=== PATIENT | male | born 1935 | race Caucasian/White ===

== ENCOUNTER 2017-07-08 01:50 | Emergency (ER) | payer MEDICARE, OTHER, MEDICAID ==
[2017-07-08 02:24] LABS: URINE PH (Dip) POC 5.5 (5.0-8.5)
[2017-07-08 02:24] LABS: URINE BLOOD (Dip) POC 1+ (NEGATIVE); URINE GLUCOSE (Dip) POC Negative (NEGATIVE); URINE KETONES (Dip) POC Negative (NEGATIVE); URINE LEUKOCYTE EST (Dip) POC 1+ (NEGATIVE); URINE NITRITE (Dip) POC Negative (NEGATIVE); URINE TOTAL PROTEIN POC 2+ (NEGATIVE)
== END 2017-07-08 02:53 | disposition home or self-care (01) ==
LOC: E/R 01:50
DX: T83.098A Other mechanical complication of other urinary catheter, initial encounter (principal); I10 Essential (primary) hypertension; E11.9 Type 2 diabetes mellitus without complications; Y73.2 Prosthetic and other implants, materials and accessory gastroenterology and urology devices associated with adverse incidents; Z79.84 Long term (current) use of oral hypoglycemic drugs
CPT/HCPCS: 81003; 99282

== ENCOUNTER 2017-07-09 16:49 | Inpatient (IN) | payer MEDICARE, OTHER ==
[2017-07-09] MEDS: SOD CHLORIDE 0.9% 1,000 ML IV (17:50)
[2017-07-09 18:10] LABS: ADD MAN DIFF? NO
[2017-07-09 18:11] LABS: WHITE BLOOD COUNT 10.2 10^3/ul (4.8-10.8)
[2017-07-09 18:11] LABS: BASOPHILS % 0.4 % (0.0-2.0); EOSINOPHILS % 0.3 % (0.0-7.0); HEMOGLOBIN 12.1 g/dl (14.0-18.0); LYMPHOCYTES # 1.8 10^3/ul (0.8-2.9); LYMPHOCYTES % 17.8 % (15.0-51.0); MEAN CORPUSCULAR HEMOGLOBIN 28.5 pg (29.0-33.0); MEAN CORPUSCULAR HGB CONC 31.8 g/dl (32.0-37.0); MEAN CORPUSCULAR VOLUME 89.4 fl (82.0-101.0); MEAN PLATELET VOLUME 9.6 fl (7.4-10.4); MONOCYTE # 0.5 10^3/ul (0.3-0.9); MONOCYTES % 5.2 % (0.0-11.0); NEUTROPHIL # 7.8 10^3/ul (1.6-7.5); NEUTROPHILS % 75.9 % (39.0-77.0); PLATELET COUNT 277 10^3/UL (140-415); RED BLOOD COUNT 4.25 10^6/ul (4.70-6.10); RED CELL DISTRIBUTION WIDTH 13.7 % (11.5-14.5)
[2017-07-09 18:22] LABS: ADD UMIC YES; UR ASCORBIC ACID NEGATIVE (NEGATIVE); UR BACTERIA FEW /HPF (NONE SEEN); UR BILIRUBIN (Dip) NEGATIVE (NEGATIVE); UR BLOOD (Dip) 3+ mg/dL (NEGATIVE); UR CLARITY CLOUDY (CLEAR); UR COLOR YELLOW (YELLOW); UR GLUCOSE (Dip) NEGATIVE (NEGATIVE); UR KETONES (Dip) NEGATIVE (NEGATIVE); UR LEUKOCYTE ESTERASE (Dip) 3+ Leu/ul (NEGATIVE); UR NITRITE (Dip) NEGATIVE (NEGATIVE); UR RBC 154 /HPF (0-5); UR SPECIFIC GRAVITY (Dip) 1.017 (1.003-1.030); UR TOTAL PROTEIN (Dip) 2+ mg/dl (NEGATIVE); UR UROBILINOGEN (Dip) NEGATIVE (NEGATIVE); UR WBC 96 /HPF (0-5)
[2017-07-09 18:28] LABS: ANION GAP 18 (8-16); BLOOD UREA NITROGEN 43 mg/dl (7-20); CALCIUM 9.1 mg/dl (8.4-10.2); CARBON DIOXIDE 24 mmol/L (21-31); CHLORIDE 98 mmol/L (97-110); CREATININE 1.88 mg/dl (0.61-1.24); GLUCOSE 222 mg/dl (70-220); POTASSIUM 5.1 mmol/L (3.5-5.1); SODIUM 135 mmol/L (135-144)
[2017-07-09 18:40] LABS: TROPONIN-I < 0.012 ng/ml (0.00-0.12)
[2017-07-09 21:15] LABS: HEMATOCRIT 35.4 % (42.0-52.0); HEMOGLOBIN 11.3 g/dl (14.0-18.0)
[2017-07-09] MEDS: CEFEPIME 1GM/50 ML (PMX) 50 ML IVPB (21:26)
[2017-07-10] MEDS ORDERED: GLUCOSE GEL 15 GRAM TUBE BUCCAL (00:30)
[2017-07-10] MEDS ORDERED: GLUCOSE GEL 15 GRAM TUBE PO ×2 (00:30)
[2017-07-10] MEDS ORDERED: DEXTROSE 50% 50 ML SYRINGE IV ×2 (00:30)
[2017-07-10] MEDS ORDERED: GLUCAGON 1 MG INJ IM (00:30)
[2017-07-10 01:15] LABS: TROPONIN-I < 0.012 ng/ml (0.00-0.12)
[2017-07-10] MEDS: ACCU-CHEK XX (02:00)
[2017-07-10] MEDS: LEVOTHYROXINE 50 MCG TAB PO (06:19)
[2017-07-10 07:21] LABS: ADD MAN DIFF? NO
[2017-07-10 07:27] LABS: BASOPHIL # 0.1 10^3/ul (0.0-0.1); BASOPHILS % 0.7 % (0.0-2.0); EOSINOPHILS # 0.3 10^3/ul (0.0-0.5); EOSINOPHILS % 3.8 % (0.0-7.0); HEMATOCRIT 35.6 % (42.0-52.0); HEMOGLOBIN 11.4 g/dl (14.0-18.0); LYMPHOCYTES # 2.1 10^3/ul (0.8-2.9); LYMPHOCYTES % 27.8 % (15.0-51.0); MEAN CORPUSCULAR HEMOGLOBIN 28.3 pg (29.0-33.0); MEAN CORPUSCULAR VOLUME 88.3 fl (82.0-101.0); MEAN PLATELET VOLUME 9.9 fl (7.4-10.4); MONOCYTE # 0.7 10^3/ul (0.3-0.9); MONOCYTES % 9.8 % (0.0-11.0); NEUTROPHIL # 4.3 10^3/ul (1.6-7.5); NEUTROPHILS % 57.8 % (39.0-77.0); PLATELET COUNT 285 10^3/UL (140-415); RED BLOOD COUNT 4.03 10^6/ul (4.70-6.10); RED CELL DISTRIBUTION WIDTH 13.7 % (11.5-14.5)
[2017-07-10 07:27] LABS: WHITE BLOOD COUNT 7.4 10^3/ul (4.8-10.8)
[2017-07-10] MEDS: INSULIN ASPART [NOVOLOG] 3 ML PEN SC ×4 (07:55→20:57)
[2017-07-10 07:56] LABS: ANION GAP 13 (8-16); BLOOD UREA NITROGEN 37 mg/dl (7-20); CALCIUM 8.7 mg/dl (8.4-10.2); CARBON DIOXIDE 29 mmol/L (21-31); CHLORIDE 105 mmol/L (97-110); CREATININE 1.41 mg/dl (0.61-1.24); GLUCOSE 118 mg/dl (70-220); POTASSIUM 4.5 mmol/L (3.5-5.1); SODIUM 142 mmol/L (135-144)
[2017-07-10] MEDS: INSULIN GLARGINE [LANtus] 3 ML PEN SC (08:57)
[2017-07-10] MEDS: ENOXAPARIN 30 MG/0.3 ML SYG SC (09:03)
[2017-07-10] MEDS: LOSARTAN 50 MG TAB PO (12:50)
[2017-07-10] MEDS: CIPROFLOXACIN 500 MG TAB PO (17:14)
[2017-07-10 20:00] LABS: ADD UMIC YES; UR ASCORBIC ACID NEGATIVE (NEGATIVE); UR BACTERIA FEW /HPF (NONE SEEN); UR BILIRUBIN (Dip) NEGATIVE (NEGATIVE); UR BLOOD (Dip) NEGATIVE (NEGATIVE); UR CLARITY CLEAR (CLEAR); UR COLOR STRAW (YELLOW); UR GLUCOSE (Dip) NEGATIVE (NEGATIVE); UR KETONES (Dip) NEGATIVE (NEGATIVE); UR LEUKOCYTE ESTERASE (Dip) 1+ Leu/ul (NEGATIVE); UR NITRITE (Dip) NEGATIVE (NEGATIVE); UR RBC 1 /HPF (0-5); UR SPECIFIC GRAVITY (Dip) 1.008 (1.003-1.030); UR TOTAL PROTEIN (Dip) NEGATIVE (NEGATIVE); UR UROBILINOGEN (Dip) NEGATIVE (NEGATIVE); UR WBC 23 /HPF (0-5)
[2017-07-10] MEDS: ATORVASTATIN 10 MG TAB PO (20:48)
[2017-07-10] MEDS: BUSPIRONE 10 MG TAB PO (23:47)
[2017-07-11] MEDS: ACCU-CHEK XX (03:26)
[2017-07-11] MEDS: CIPROFLOXACIN 500 MG TAB PO ×2 (05:40→17:38)
[2017-07-11] MEDS: LEVOTHYROXINE 50 MCG TAB PO (05:40)
[2017-07-11] MEDS: ACETAMINOPHEN 325 MG TAB PO (05:40)
[2017-07-11 07:01] LABS: ADD MAN DIFF? NO
[2017-07-11 07:07] LABS: BASOPHILS % 0.4 % (0.0-2.0); EOSINOPHILS # 0.3 10^3/ul (0.0-0.5); HEMATOCRIT 37.9 % (42.0-52.0); LYMPHOCYTES # 1.8 10^3/ul (0.8-2.9); LYMPHOCYTES % 25.1 % (15.0-51.0); MEAN CORPUSCULAR HEMOGLOBIN 27.9 pg (29.0-33.0); MEAN CORPUSCULAR HGB CONC 31.7 g/dl (32.0-37.0); MEAN CORPUSCULAR VOLUME 88.1 fl (82.0-101.0); MEAN PLATELET VOLUME 9.8 fl (7.4-10.4); MONOCYTE # 0.6 10^3/ul (0.3-0.9); MONOCYTES % 9.2 % (0.0-11.0); NEUTROPHIL # 4.3 10^3/ul (1.6-7.5); NEUTROPHILS % 61.2 % (39.0-77.0); PLATELET COUNT 289 10^3/UL (140-415); RED CELL DISTRIBUTION WIDTH 13.7 % (11.5-14.5)
[2017-07-11] MEDS: INSULIN ASPART [NOVOLOG] 3 ML PEN SC ×4 (07:55→20:48)
[2017-07-11] MEDS: metFORMIN 500 MG TAB PO (08:02)
[2017-07-11 08:05] LABS: ALANINE AMINOTRANSFERASE 30 IU/L (13-69); ALKALINE PHOSPHATASE 88 IU/L (42-121); ANION GAP 13 (8-16); ASPARTATE AMINO TRANSFERASE 25 IU/L (15-46); BILIRUBIN,TOTAL 0.2 mg/dl (0.2-1.3); BLOOD UREA NITROGEN 34 mg/dl (7-20); CALCIUM 8.9 mg/dl (8.4-10.2); CARBON DIOXIDE 30 mmol/L (21-31); CHLORIDE 105 mmol/L (97-110); CREATININE 1.19 mg/dl (0.61-1.24); GLUCOSE 116 mg/dl (70-220); POTASSIUM 4.8 mmol/L (3.5-5.1); SODIUM 143 mmol/L (135-144)
[2017-07-11 08:06] LABS: ALBUMIN 3.5 g/dl (3.3-4.9); ALBUMIN/GLOBULIN RATIO 0.97; BILIRUBIN,INDIRECT 0.2 mg/dl (0-1.1); CHOL/HDL RATIO 3.6 RATIO; CHOLESTEROL 116 mg/dl (100-200); HDL CHOLESTEROL 32 mg/dl (31-75); LDL CHOLESTEROL,CALCULATED 64 mg/dl; TOTAL PROTEIN 7.1 g/dl (6.1-8.1); TRIGLYCERIDES 98 mg/dl (0-149)
[2017-07-11 08:10] LABS: ERYTHROCYTE SEDIMENTATION RATE 34 mm/Hr (0-20)
[2017-07-11] MEDS: INSULIN GLARGINE [LANtus] 3 ML PEN SC (08:12)
[2017-07-11] MEDS: ASPIRIN 325 MG TAB PO (08:52)
[2017-07-11] MEDS: LOSARTAN 50 MG TAB PO (08:53)
[2017-07-11] MEDS: ENOXAPARIN 30 MG/0.3 ML SYG SC (09:04)
[2017-07-11] MEDS ORDERED: VANCOMYCIN IV PER PHARMACY XX (16:00)
[2017-07-11] MEDS: VANCOMYCIN 1.5 GM in SOD CHLORIDE 0.9% 250 ML IVPB (17:38)
[2017-07-11] MEDS: SOD CHLORIDE 0.9% 1,000 ML IV (18:59)
[2017-07-11] MEDS: TAMSULOSIN (SR) 0.4 MG CAP PO (20:53)
[2017-07-11] MEDS: ATORVASTATIN 10 MG TAB PO (20:53)
[2017-07-11] MEDS ORDERED: ATORVASTATIN 10 MG TAB PO (21:00)
[2017-07-12] MEDS: ACCU-CHEK XX (02:00)
[2017-07-12] MEDS: CIPROFLOXACIN 500 MG TAB PO (05:20)
[2017-07-12] MEDS: LEVOTHYROXINE 50 MCG TAB PO (05:20)
[2017-07-12 06:43] LABS: ADD MAN DIFF? NO
[2017-07-12 06:46] LABS: BASOPHILS % 0.5 % (0.0-2.0); EOSINOPHILS # 0.3 10^3/ul (0.0-0.5); EOSINOPHILS % 3.9 % (0.0-7.0); HEMATOCRIT 37.1 % (42.0-52.0); HEMOGLOBIN 11.8 g/dl (14.0-18.0); LYMPHOCYTES # 1.8 10^3/ul (0.8-2.9); LYMPHOCYTES % 26.6 % (15.0-51.0); MEAN CORPUSCULAR HEMOGLOBIN 28.2 pg (29.0-33.0); MEAN CORPUSCULAR HGB CONC 31.8 g/dl (32.0-37.0); MEAN CORPUSCULAR VOLUME 88.8 fl (82.0-101.0); MEAN PLATELET VOLUME 9.8 fl (7.4-10.4); MONOCYTE # 0.7 10^3/ul (0.3-0.9); MONOCYTES % 10.7 % (0.0-11.0); NEUTROPHIL # 3.9 10^3/ul (1.6-7.5); PLATELET COUNT 247 10^3/UL (140-415); RED BLOOD COUNT 4.18 10^6/ul (4.70-6.10); RED CELL DISTRIBUTION WIDTH 13.4 % (11.5-14.5)
[2017-07-12 06:46] LABS: WHITE BLOOD COUNT 6.7 10^3/ul (4.8-10.8)
[2017-07-12 07:29] LABS: ANION GAP 14 (8-16); BLOOD UREA NITROGEN 33 mg/dl (7-20); CALCIUM 8.5 mg/dl (8.4-10.2); CARBON DIOXIDE 27 mmol/L (21-31); CHLORIDE 105 mmol/L (97-110); CREATININE 1.14 mg/dl (0.61-1.24); GLUCOSE 114 mg/dl (70-220); POTASSIUM 4.1 mmol/L (3.5-5.1); SODIUM 142 mmol/L (135-144)
[2017-07-12] MEDS: INSULIN ASPART [NOVOLOG] 3 ML PEN SC ×4 (07:55→21:00)
[2017-07-12] MEDS: metFORMIN 500 MG TAB PO (08:13)
[2017-07-12] MEDS: INSULIN GLARGINE [LANtus] 3 ML PEN SC (08:15)
[2017-07-12] MEDS: ASPIRIN 81 MG TAB PO (09:22)
[2017-07-12] MEDS: ENOXAPARIN 30 MG/0.3 ML SYG SC (09:22)
[2017-07-12] MEDS: LOSARTAN 50 MG TAB PO (09:23)
[2017-07-12] MEDS: SOD CHLORIDE 0.9% 1,000 ML IV (13:30)
[2017-07-12] MEDS ORDERED: LOSARTAN 50 MG TAB PO (13:30)
[2017-07-12] MEDS: hydrALAzine 20 MG INJ IV (15:44)
[2017-07-12] MEDS ORDERED: VANCOMYCIN 1 GM 250 ML IVPB (18:00)
[2017-07-12] MEDS ORDERED: MAGNESIUM HYDROXIDE 30ML CUP PO (19:30)
[2017-07-12] MEDS: ATORVASTATIN 10 MG TAB PO (21:12)
[2017-07-12] MEDS: NITROFURANTOIN (SR) 100 MG CAP PO (21:12)
[2017-07-12] MEDS: TAMSULOSIN (SR) 0.4 MG CAP PO (21:13)
[2017-07-13] MEDS: ACCU-CHEK XX (02:00)
[2017-07-13] MEDS: LEVOTHYROXINE 50 MCG TAB PO (06:12)
[2017-07-13 06:48] LABS: ADD MAN DIFF? NO
[2017-07-13 06:52] LABS: WHITE BLOOD COUNT 7.1 10^3/ul (4.8-10.8)
[2017-07-13 06:52] LABS: BASOPHILS % 0.4 % (0.0-2.0); EOSINOPHILS # 0.2 10^3/ul (0.0-0.5); EOSINOPHILS % 2.7 % (0.0-7.0); HEMATOCRIT 35.7 % (42.0-52.0); HEMOGLOBIN 11.4 g/dl (14.0-18.0); LYMPHOCYTES # 1.9 10^3/ul (0.8-2.9); LYMPHOCYTES % 27.2 % (15.0-51.0); MEAN CORPUSCULAR HEMOGLOBIN 28.3 pg (29.0-33.0); MEAN CORPUSCULAR HGB CONC 31.9 g/dl (32.0-37.0); MEAN CORPUSCULAR VOLUME 88.6 fl (82.0-101.0); MEAN PLATELET VOLUME 9.9 fl (7.4-10.4); MONOCYTE # 0.8 10^3/ul (0.3-0.9); MONOCYTES % 11.2 % (0.0-11.0); NEUTROPHIL # 4.2 10^3/ul (1.6-7.5); NEUTROPHILS % 58.2 % (39.0-77.0); PLATELET COUNT 262 10^3/UL (140-415); RED BLOOD COUNT 4.03 10^6/ul (4.70-6.10); RED CELL DISTRIBUTION WIDTH 13.3 % (11.5-14.5)
[2017-07-13 06:53] LABS: RETICULOCYTE RBC 3.99
[2017-07-13 06:53] LABS: RETICULOCYTE COUNT # 0.034 X10^6 (0.020-0.110); RETICULOCYTE COUNT % 0.9 % (0.5-1.5)
[2017-07-13 07:11] LABS: IRON 59 ug/dl (35-150)
[2017-07-13 07:16] LABS: ANION GAP 12 (8-16); BLOOD UREA NITROGEN 30 mg/dl (7-20); CALCIUM 8.9 mg/dl (8.4-10.2); CARBON DIOXIDE 28 mmol/L (21-31); CHLORIDE 108 mmol/L (97-110); CREATININE 1.13 mg/dl (0.61-1.24); GLUCOSE 108 mg/dl (70-220); POTASSIUM 3.9 mmol/L (3.5-5.1); SODIUM 144 mmol/L (135-144)
[2017-07-13 07:21] LABS: % IRON SATURATION 26 % SAT (22-52); TOTAL IRON BINDING CAPACITY 231 ug/dl (241-421)
[2017-07-13 07:32] LABS: MAGNESIUM 1.5 mg/dl (1.7-2.5)
[2017-07-13] MEDS: INSULIN ASPART [NOVOLOG] 3 ML PEN SC ×4 (07:55→21:00)
[2017-07-13 08:18] LABS: FOLATE 16.6 ng/ml (2.8-20.0)
[2017-07-13] MEDS: NITROFURANTOIN (SR) 100 MG CAP PO ×3 (08:39→21:00)
[2017-07-13] MEDS: ASPIRIN 81 MG TAB PO (08:40)
[2017-07-13] MEDS: LOSARTAN 50 MG TAB PO ×2 (08:40→20:41)
[2017-07-13] MEDS: FERROUS SULFATE (EC) 325 MG TAB PO (08:40)
[2017-07-13] MEDS: metFORMIN 500 MG TAB PO (08:40)
[2017-07-13] MEDS: INSULIN GLARGINE [LANtus] 3 ML PEN SC (08:50)
[2017-07-13] MEDS: ENOXAPARIN 30 MG/0.3 ML SYG SC (08:50)
[2017-07-13] MEDS: IODIXANOL LOCM 100 ML BTL (16:25)
[2017-07-13] MEDS: SOD CHLORIDE 0.9% 100 ML (16:25)
[2017-07-13] MEDS: MAGNESIUM SULFATE 2 GM/50 ML 50 ML IVPB (16:35)
[2017-07-13] MEDS: ATORVASTATIN 10 MG TAB PO (20:41)
[2017-07-13] MEDS: TAMSULOSIN (SR) 0.4 MG CAP PO (20:41)
[2017-07-14] MEDS: ACCU-CHEK XX (02:00)
[2017-07-14] MEDS: LEVOTHYROXINE 50 MCG TAB PO (05:34)
[2017-07-14 06:56] LABS: ADD MAN DIFF? NO
[2017-07-14 07:03] LABS: BASOPHILS % 0.5 % (0.0-2.0); EOSINOPHILS # 0.2 10^3/ul (0.0-0.5); EOSINOPHILS % 3.1 % (0.0-7.0); HEMATOCRIT 35.4 % (42.0-52.0); HEMOGLOBIN 11.5 g/dl (14.0-18.0); LYMPHOCYTES # 1.7 10^3/ul (0.8-2.9); LYMPHOCYTES % 23.8 % (15.0-51.0); MEAN CORPUSCULAR HEMOGLOBIN 28.5 pg (29.0-33.0); MEAN CORPUSCULAR HGB CONC 32.5 g/dl (32.0-37.0); MEAN CORPUSCULAR VOLUME 87.6 fl (82.0-101.0); MEAN PLATELET VOLUME 9.7 fl (7.4-10.4); MONOCYTE # 0.8 10^3/ul (0.3-0.9); MONOCYTES % 11.1 % (0.0-11.0); NEUTROPHIL # 4.5 10^3/ul (1.6-7.5); NEUTROPHILS % 61.4 % (39.0-77.0); PLATELET COUNT 278 10^3/UL (140-415); RED BLOOD COUNT 4.04 10^6/ul (4.70-6.10); RED CELL DISTRIBUTION WIDTH 13.4 % (11.5-14.5)
[2017-07-14 07:03] LABS: WHITE BLOOD COUNT 7.3 10^3/ul (4.8-10.8)
[2017-07-14 07:26] LABS: ANION GAP 12 (8-16); BLOOD UREA NITROGEN 32 mg/dl (7-20); CARBON DIOXIDE 27 mmol/L (21-31); CHLORIDE 105 mmol/L (97-110); CREATININE 1.33 mg/dl (0.61-1.24); GLUCOSE 107 mg/dl (70-220); SODIUM 140 mmol/L (135-144)
[2017-07-14] MEDS: INSULIN ASPART [NOVOLOG] 3 ML PEN SC ×4 (07:55→20:42)
[2017-07-14] MEDS: NITROFURANTOIN (SR) 100 MG CAP PO ×2 (08:35→20:37)
[2017-07-14] MEDS: FERROUS SULFATE (EC) 325 MG TAB PO (08:35)
[2017-07-14] MEDS: metFORMIN 500 MG TAB PO (08:35)
[2017-07-14] MEDS: ASPIRIN 81 MG TAB PO (08:35)
[2017-07-14] MEDS: LOSARTAN 50 MG TAB PO ×2 (08:35→20:37)
[2017-07-14] MEDS: INSULIN GLARGINE [LANtus] 3 ML PEN SC (08:51)
[2017-07-14] MEDS: ENOXAPARIN 30 MG/0.3 ML SYG SC (08:51)
[2017-07-14] MEDS: ATORVASTATIN 10 MG TAB PO (20:37)
[2017-07-14] MEDS: TAMSULOSIN (SR) 0.4 MG CAP PO (20:37)
[2017-07-14 23:27] LABS: PROTEIN, TOTAL 6.5 g/dL (6.1-8.1)
[2017-07-15] MEDS: ACETAMINOPHEN 325 MG TAB PO (00:17)
[2017-07-15] MEDS: ACCU-CHEK XX (00:51)
[2017-07-15] MEDS: LEVOTHYROXINE 50 MCG TAB PO (05:51)
[2017-07-15] MEDS: INSULIN ASPART [NOVOLOG] 3 ML PEN SC ×4 (07:55→20:38)
[2017-07-15] MEDS: NITROFURANTOIN (SR) 100 MG CAP PO ×2 (08:11→20:39)
[2017-07-15] MEDS: FERROUS SULFATE (EC) 325 MG TAB PO (08:11)
[2017-07-15] MEDS: LOSARTAN 50 MG TAB PO ×2 (08:12→20:40)
[2017-07-15] MEDS: metFORMIN 500 MG TAB PO (08:12)
[2017-07-15] MEDS: ASPIRIN 81 MG TAB PO (08:13)
[2017-07-15] MEDS: ENOXAPARIN 30 MG/0.3 ML SYG SC (08:14)
[2017-07-15] MEDS: INSULIN GLARGINE [LANtus] 3 ML PEN SC (08:15)
[2017-07-15 08:19] LABS: ADD MAN DIFF? NO
[2017-07-15 08:21] LABS: BASOPHILS % 0.4 % (0.0-2.0); EOSINOPHILS # 0.2 10^3/ul (0.0-0.5); EOSINOPHILS % 3.4 % (0.0-7.0); HEMATOCRIT 36.4 % (42.0-52.0); HEMOGLOBIN 11.8 g/dl (14.0-18.0); LYMPHOCYTES # 2.1 10^3/ul (0.8-2.9); LYMPHOCYTES % 31.2 % (15.0-51.0); MEAN CORPUSCULAR HEMOGLOBIN 28.4 pg (29.0-33.0); MEAN CORPUSCULAR HGB CONC 32.4 g/dl (32.0-37.0); MEAN CORPUSCULAR VOLUME 87.7 fl (82.0-101.0); MEAN PLATELET VOLUME 9.9 fl (7.4-10.4); MONOCYTE # 0.8 10^3/ul (0.3-0.9); MONOCYTES % 11.7 % (0.0-11.0); NEUTROPHIL # 3.6 10^3/ul (1.6-7.5); PLATELET COUNT 259 10^3/UL (140-415); RED BLOOD COUNT 4.15 10^6/ul (4.70-6.10); RED CELL DISTRIBUTION WIDTH 13.5 % (11.5-14.5)
[2017-07-15 08:21] LABS: WHITE BLOOD COUNT 6.8 10^3/ul (4.8-10.8)
[2017-07-15 08:53] LABS: MAGNESIUM 1.9 mg/dl (1.7-2.5)
[2017-07-15 09:26] LABS: ANION GAP 16 (8-16); BLOOD UREA NITROGEN 37 mg/dl (7-20); CALCIUM 8.9 mg/dl (8.4-10.2); CARBON DIOXIDE 26 mmol/L (21-31); CHLORIDE 104 mmol/L (97-110); CREATININE 1.41 mg/dl (0.61-1.24); GLUCOSE 96 mg/dl (70-220); POTASSIUM 4.3 mmol/L (3.5-5.1); SODIUM 142 mmol/L (135-144)
[2017-07-15 12:19] LABS: OCCULT BLOOD STOOL NEGATIVE (NEGATIVE)
[2017-07-15] MEDS: SOD CHLORIDE 0.9% 1,000 ML IV (13:34)
[2017-07-15] MEDS: MAGNESIUM SULFATE 1 GM/D5W 100 ML IVPB (15:32)
[2017-07-15] MEDS: TAMSULOSIN (SR) 0.4 MG CAP PO (20:39)
[2017-07-15] MEDS: ATORVASTATIN 10 MG TAB PO (20:39)
[2017-07-15 22:32] LABS: ALBUMIN 3.3 g/dL (3.8-4.8); ALPHA-1-GLOBULINS 0.3 g/dL (0.2-0.3); ALPHA-2-GLOBULINS 0.8 g/dL (0.5-0.9); BETA 2 GLOBULINS 0.5 g/dL (0.2-0.5); BETA GLOBULINS 0.3 g/dL (0.4-0.6); GAMMA GLOBULINS 1.3 g/dL (0.8-1.7)
[2017-07-16] MEDS: ACCU-CHEK XX (00:56)
[2017-07-16] MEDS: SOD CHLORIDE 0.9% 1,000 ML IV (03:08)
[2017-07-16] MEDS: LEVOTHYROXINE 50 MCG TAB PO (05:47)
[2017-07-16] MEDS: INSULIN ASPART [NOVOLOG] 3 ML PEN SC ×4 (07:55→20:46)
[2017-07-16] MEDS: NITROFURANTOIN (SR) 100 MG CAP PO ×2 (08:09→20:51)
[2017-07-16] MEDS: FERROUS SULFATE (EC) 325 MG TAB PO (08:10)
[2017-07-16] MEDS: LOSARTAN 50 MG TAB PO ×2 (08:10→20:47)
[2017-07-16] MEDS: metFORMIN 500 MG TAB PO (08:10)
[2017-07-16] MEDS: ASPIRIN 81 MG TAB PO (08:10)
[2017-07-16] MEDS: ENOXAPARIN 30 MG/0.3 ML SYG SC (08:18)
[2017-07-16] MEDS: INSULIN GLARGINE [LANtus] 3 ML PEN SC (08:19)
[2017-07-16 09:24] LABS: ADD MAN DIFF? NO
[2017-07-16 09:31] LABS: WHITE BLOOD COUNT 6.7 10^3/ul (4.8-10.8)
[2017-07-16 09:31] LABS: BASOPHILS % 0.6 % (0.0-2.0); EOSINOPHILS # 0.3 10^3/ul (0.0-0.5); HEMATOCRIT 35.7 % (42.0-52.0); HEMOGLOBIN 11.5 g/dl (14.0-18.0); LYMPHOCYTES # 2.1 10^3/ul (0.8-2.9); MEAN CORPUSCULAR HGB CONC 32.2 g/dl (32.0-37.0); MEAN CORPUSCULAR VOLUME 86.9 fl (82.0-101.0); MEAN PLATELET VOLUME 9.6 fl (7.4-10.4); MONOCYTE # 0.7 10^3/ul (0.3-0.9); MONOCYTES % 10.3 % (0.0-11.0); NEUTROPHIL # 3.6 10^3/ul (1.6-7.5); NEUTROPHILS % 53.8 % (39.0-77.0); PLATELET COUNT 249 10^3/UL (140-415); RED BLOOD COUNT 4.11 10^6/ul (4.70-6.10); RED CELL DISTRIBUTION WIDTH 13.6 % (11.5-14.5)
[2017-07-16 09:43] LABS: ANION GAP 14 (8-16); BLOOD UREA NITROGEN 32 mg/dl (7-20); CALCIUM 8.6 mg/dl (8.4-10.2); CARBON DIOXIDE 26 mmol/L (21-31); CHLORIDE 106 mmol/L (97-110); CREATININE 1.13 mg/dl (0.61-1.24); GLUCOSE 95 mg/dl (70-220); POTASSIUM 4.3 mmol/L (3.5-5.1); SODIUM 142 mmol/L (135-144)
[2017-07-16 10:30] LABS: MAGNESIUM 1.9 mg/dl (1.7-2.5)
[2017-07-16] MEDS: hydrALAzine 20 MG INJ IV (16:11)
[2017-07-16] MEDS: TAMSULOSIN (SR) 0.4 MG CAP PO (20:48)
[2017-07-16] MEDS: ATORVASTATIN 10 MG TAB PO (20:49)
[2017-07-17] MEDS: ACCU-CHEK XX ×2 (02:00→20:57)
[2017-07-17] MEDS: LEVOTHYROXINE 50 MCG TAB PO (06:40)
[2017-07-17] MEDS: INSULIN ASPART [NOVOLOG] 3 ML PEN SC ×4 (07:55→20:41)
[2017-07-17] MEDS: ENOXAPARIN 30 MG/0.3 ML SYG SC (08:00)
[2017-07-17] MEDS: INSULIN GLARGINE [LANtus] 3 ML PEN SC (08:01)
[2017-07-17] MEDS: NITROFURANTOIN (SR) 100 MG CAP PO ×2 (08:01→20:34)
[2017-07-17] MEDS: ASPIRIN 81 MG TAB PO (08:01)
[2017-07-17] MEDS: FERROUS SULFATE (EC) 325 MG TAB PO (08:02)
[2017-07-17] MEDS: metFORMIN 500 MG TAB PO (08:02)
[2017-07-17] MEDS: LOSARTAN 50 MG TAB PO ×2 (08:02→20:38)
[2017-07-17] MEDS: TAMSULOSIN (SR) 0.4 MG CAP PO (20:34)
[2017-07-17] MEDS: ATORVASTATIN 10 MG TAB PO (20:34)
[2017-07-18] MEDS: LEVOTHYROXINE 50 MCG TAB PO (07:26)
[2017-07-18] MEDS: INSULIN ASPART [NOVOLOG] 3 ML PEN SC ×4 (07:55→20:28)
[2017-07-18] MEDS: metFORMIN 500 MG TAB PO (08:01)
[2017-07-18] MEDS: FERROUS SULFATE (EC) 325 MG TAB PO (08:01)
[2017-07-18] MEDS: ASPIRIN 81 MG TAB PO (08:01)
[2017-07-18] MEDS: NITROFURANTOIN (SR) 100 MG CAP PO ×2 (08:01→20:30)
[2017-07-18] MEDS: LOSARTAN 50 MG TAB PO ×2 (08:02→20:30)
[2017-07-18] MEDS: INSULIN GLARGINE [LANtus] 3 ML PEN SC (08:07)
[2017-07-18] MEDS: ENOXAPARIN 30 MG/0.3 ML SYG SC (08:07)
[2017-07-18] MEDS: hydrALAzine 20 MG INJ IV (15:46)
[2017-07-18] MEDS: ATORVASTATIN 10 MG TAB PO (20:29)
[2017-07-19] MEDS: ACCU-CHEK XX (02:00)
[2017-07-19 06:31] LABS: ADD MAN DIFF? NO
[2017-07-19 06:36] LABS: BASOPHIL # 0.1 10^3/ul (0.0-0.1); BASOPHILS % 0.8 % (0.0-2.0); EOSINOPHILS # 0.2 10^3/ul (0.0-0.5); EOSINOPHILS % 3.7 % (0.0-7.0); HEMATOCRIT 35.3 % (42.0-52.0); HEMOGLOBIN 11.6 g/dl (14.0-18.0); LYMPHOCYTES % 32.1 % (15.0-51.0); MEAN CORPUSCULAR HEMOGLOBIN 28.4 pg (29.0-33.0); MEAN CORPUSCULAR HGB CONC 32.9 g/dl (32.0-37.0); MEAN CORPUSCULAR VOLUME 86.5 fl (82.0-101.0); MEAN PLATELET VOLUME 10.1 fl (7.4-10.4); MONOCYTE # 0.7 10^3/ul (0.3-0.9); MONOCYTES % 10.5 % (0.0-11.0); NEUTROPHIL # 3.3 10^3/ul (1.6-7.5); NEUTROPHILS % 52.7 % (39.0-77.0); PLATELET COUNT 231 10^3/UL (140-415); RED BLOOD COUNT 4.08 10^6/ul (4.70-6.10); RED CELL DISTRIBUTION WIDTH 13.9 % (11.5-14.5)
[2017-07-19 06:36] LABS: WHITE BLOOD COUNT 6.3 10^3/ul (4.8-10.8)
[2017-07-19] MEDS: LEVOTHYROXINE 50 MCG TAB PO (06:56)
[2017-07-19 06:58] LABS: ANION GAP 12 (8-16); BLOOD UREA NITROGEN 43 mg/dl (7-20); CALCIUM 9.2 mg/dl (8.4-10.2); CARBON DIOXIDE 28 mmol/L (21-31); CHLORIDE 107 mmol/L (97-110); CREATININE 1.28 mg/dl (0.61-1.24); GLUCOSE 100 mg/dl (70-220); POTASSIUM 4.1 mmol/L (3.5-5.1); SODIUM 143 mmol/L (135-144)
[2017-07-19] MEDS: INSULIN ASPART [NOVOLOG] 3 ML PEN SC ×4 (07:55→21:00)
[2017-07-19] MEDS: ENOXAPARIN 30 MG/0.3 ML SYG SC (09:33)
[2017-07-19] MEDS: NITROFURANTOIN (SR) 100 MG CAP PO ×2 (09:34→21:23)
[2017-07-19] MEDS: FERROUS SULFATE (EC) 325 MG TAB PO (09:34)
[2017-07-19] MEDS: INSULIN GLARGINE [LANtus] 3 ML PEN SC (09:34)
[2017-07-19] MEDS: ASPIRIN 81 MG TAB PO (09:34)
[2017-07-19] MEDS: metFORMIN 500 MG TAB PO (09:34)
[2017-07-19] MEDS: LOSARTAN 50 MG TAB PO ×2 (09:35→21:23)
[2017-07-19] MEDS: ATORVASTATIN 10 MG TAB PO (21:23)
[2017-07-19] MEDS: BUSPIRONE 10 MG TAB PO (22:33)
[2017-07-20] MEDS: ACCU-CHEK XX (02:00)
[2017-07-20] MEDS: LEVOTHYROXINE 50 MCG TAB PO (05:12)
[2017-07-20] MEDS: INSULIN ASPART [NOVOLOG] 3 ML PEN SC ×4 (07:55→21:15)
[2017-07-20 08:24] LABS: ADD MAN DIFF? NO
[2017-07-20] MEDS: INSULIN GLARGINE [LANtus] 3 ML PEN SC (08:28)
[2017-07-20 08:32] LABS: BASOPHIL # 0.1 10^3/ul (0.0-0.1); BASOPHILS % 0.7 % (0.0-2.0); EOSINOPHILS # 0.3 10^3/ul (0.0-0.5); EOSINOPHILS % 3.9 % (0.0-7.0); HEMATOCRIT 36.6 % (42.0-52.0); HEMOGLOBIN 11.9 g/dl (14.0-18.0); LYMPHOCYTES # 2.2 10^3/ul (0.8-2.9); LYMPHOCYTES % 31.3 % (15.0-51.0); MEAN CORPUSCULAR HEMOGLOBIN 28.4 pg (29.0-33.0); MEAN CORPUSCULAR HGB CONC 32.5 g/dl (32.0-37.0); MEAN CORPUSCULAR VOLUME 87.4 fl (82.0-101.0); MEAN PLATELET VOLUME 9.9 fl (7.4-10.4); MONOCYTE # 0.8 10^3/ul (0.3-0.9); MONOCYTES % 10.9 % (0.0-11.0); NEUTROPHIL # 3.6 10^3/ul (1.6-7.5); NEUTROPHILS % 52.9 % (39.0-77.0); PLATELET COUNT 236 10^3/UL (140-415); RED BLOOD COUNT 4.19 10^6/ul (4.70-6.10); RED CELL DISTRIBUTION WIDTH 13.9 % (11.5-14.5)
[2017-07-20 08:32] LABS: WHITE BLOOD COUNT 6.9 10^3/ul (4.8-10.8)
[2017-07-20] MEDS: NITROFURANTOIN (SR) 100 MG CAP PO ×2 (08:33→21:10)
[2017-07-20] MEDS: metFORMIN 500 MG TAB PO (08:34)
[2017-07-20] MEDS: ASPIRIN 81 MG TAB PO (08:34)
[2017-07-20] MEDS: FERROUS SULFATE (EC) 325 MG TAB PO (08:34)
[2017-07-20] MEDS: LOSARTAN 50 MG TAB PO ×2 (08:35→21:08)
[2017-07-20] MEDS: ENOXAPARIN 30 MG/0.3 ML SYG SC (08:37)
[2017-07-20 08:45] LABS: ANION GAP 14 (8-16); BLOOD UREA NITROGEN 40 mg/dl (7-20); CALCIUM 8.9 mg/dl (8.4-10.2); CARBON DIOXIDE 26 mmol/L (21-31); CHLORIDE 106 mmol/L (97-110); CREATININE 1.18 mg/dl (0.61-1.24); GLUCOSE 96 mg/dl (70-220); POTASSIUM 4.4 mmol/L (3.5-5.1); SODIUM 142 mmol/L (135-144)
[2017-07-20 11:37] LABS: ALDOSTERONE 2 ng/dL
[2017-07-20] MEDS: ATORVASTATIN 10 MG TAB PO (21:10)
[2017-07-20] MEDS: ROPINIROLE 0.25 MG TAB PO (21:10)
[2017-07-21] MEDS: ACCU-CHEK XX (02:00)
[2017-07-21] MEDS: LEVOTHYROXINE 50 MCG TAB PO (05:34)
[2017-07-21] MEDS: INSULIN ASPART [NOVOLOG] 3 ML PEN SC ×4 (07:55→21:00)
[2017-07-21] MEDS: ASPIRIN 81 MG TAB PO (08:11)
[2017-07-21] MEDS: FERROUS SULFATE (EC) 325 MG TAB PO (08:11)
[2017-07-21] MEDS: metFORMIN 500 MG TAB PO (08:11)
[2017-07-21] MEDS: NITROFURANTOIN (SR) 100 MG CAP PO ×2 (08:11→21:43)
[2017-07-21] MEDS: LOSARTAN 50 MG TAB PO ×2 (08:11→21:43)
[2017-07-21] MEDS: INSULIN GLARGINE [LANtus] 3 ML PEN SC (08:19)
[2017-07-21] MEDS: ENOXAPARIN 30 MG/0.3 ML SYG SC (08:20)
[2017-07-21] MEDS: ATORVASTATIN 10 MG TAB PO (21:43)
[2017-07-21] MEDS: ROPINIROLE 0.25 MG TAB PO (21:43)
[2017-07-22] MEDS: ACCU-CHEK XX (02:00)
[2017-07-22] MEDS: LEVOTHYROXINE 50 MCG TAB PO (05:40)
[2017-07-22] MEDS: INSULIN ASPART [NOVOLOG] 3 ML PEN SC ×4 (07:55→20:07)
[2017-07-22] MEDS: metFORMIN 500 MG TAB PO (08:01)
[2017-07-22] MEDS: INSULIN GLARGINE [LANtus] 3 ML PEN SC (08:10)
[2017-07-22] MEDS: NITROFURANTOIN (SR) 100 MG CAP PO (08:57)
[2017-07-22] MEDS: FERROUS SULFATE (EC) 325 MG TAB PO (08:57)
[2017-07-22] MEDS: LOSARTAN 50 MG TAB PO ×2 (08:57→19:56)
[2017-07-22] MEDS: ASPIRIN 81 MG TAB PO (08:57)
[2017-07-22] MEDS: ENOXAPARIN 30 MG/0.3 ML SYG SC (09:02)
[2017-07-22] MEDS: ATORVASTATIN 10 MG TAB PO (19:55)
[2017-07-22] MEDS: ROPINIROLE 0.25 MG TAB PO (19:56)
[2017-07-22] MEDS: BUSPIRONE 10 MG TAB PO (19:57)
[2017-07-23] MEDS: ACCU-CHEK XX (02:00)
[2017-07-23] MEDS: LEVOTHYROXINE 50 MCG TAB PO (05:23)
[2017-07-23] MEDS: INSULIN ASPART [NOVOLOG] 3 ML PEN SC ×2 (07:55→11:50)
[2017-07-23] MEDS: metFORMIN 500 MG TAB PO (08:02)
[2017-07-23] MEDS: INSULIN GLARGINE [LANtus] 3 ML PEN SC (08:07)
[2017-07-23] MEDS: ASPIRIN 81 MG TAB PO (08:42)
[2017-07-23] MEDS: FERROUS SULFATE (EC) 325 MG TAB PO (08:42)
[2017-07-23] MEDS: ENOXAPARIN 30 MG/0.3 ML SYG SC (08:46)
[2017-07-23] MEDS: LOSARTAN 50 MG TAB PO (12:00)
== END 2017-07-23 15:50 | disposition home or self-care (01) | DRG 312 ==
LOC: E/R 16:49 → TEL 07-11 17:43
DX: I95.1 Orthostatic hypotension (principal); N39.0 Urinary tract infection, site not specified; N17.9 Acute kidney failure, unspecified; I65.21 Occlusion and stenosis of right carotid artery; E11.65 Type 2 diabetes mellitus with hyperglycemia; N40.1 Benign prostatic hyperplasia with lower urinary tract symptoms; R33.8 Other retention of urine; R39.14 Feeling of incomplete bladder emptying; I12.9 Hypertensive chronic kidney disease with stage 1 through stage 4 chronic kidney disease, or unspecified chronic kidney disease; E11.22 Type 2 diabetes mellitus with diabetic chronic kidney disease; N18.9 Chronic kidney disease, unspecified; Z79.4 Long term (current) use of insulin; I65.29 Occlusion and stenosis of unspecified carotid artery; R33.9 Retention of urine, unspecified; Z96.0 Presence of urogenital implants; R55 Syncope and collapse; N13.9 Obstructive and reflux uropathy, unspecified; E86.1 Hypovolemia; G25.81 Restless legs syndrome
CPT/HCPCS: 36415; 70498; 70551; 71045; 74176; 76536; 76775; 76856; 80048; 80053; 80061; 81001; 82088; 82270; 82382; 82530; 82533; 82607; 82728; 82746; 82962; 83036; 83497; 83540; 83735; 83835; 84153; 84154; 84155; 84165; 84260; 84443; 84484; 84585; 85014; 85018; 85025; 85045; 85651; 87040; 87086; 93005; 93306; 93880; 93922; 96374; 97110; 97116; 97161; 97530; 99217; 99285-25; G0378